=== PATIENT | female | born 1990 | race African-American/Black ===

== ENCOUNTER 2016-08-28 10:04 | Emergency (ER) | payer OTHER ==
[~2016-08-28] VITALS: Ht 167.6 cm; Wt 95.3 kg
[2016-08-28 10:18] VITALS: BP 144/90
--- NOTE | 2016-08-28 11:12 | PHYS DOC ---
Past Medical History Past Medical History: Anemia, Asthma Past Surgical History: Cholecystectomy Alcohol Use: Occasionally Drug Use: Marijuana Adult General Chief Complaint Chief Complaint: MULTIPLE COMPLAINTS HPI HPI Patient is a 26 year old female area and she states that she has not taken anything for pain and discomfort. She states that she had lifted something at work that was heavy. She continues to state that she is having bilateral hip pain and discomfort. She states that this is been gone on for years and there is something that has helped with the pain and discomfort. Patient denies any loss of bowel or bladder. She denies any numbness or tingling down into her feet. She does state that she has some burning with urination. She denies any fever, chills or any nausea vomiting. Review of Systems Review of Systems Constitutional: Denies fever or chills [] Eyes: Denies change in visual acuity, redness, or eye pain [] HENT: Denies nasal congestion or sore throat [] Respiratory: Denies cough or shortness of breath [] Cardiovascular: No additional information not addressed in HPI [] GI: Denies abdominal pain, nausea, vomiting, bloody stools or diarrhea [] : Denies dysuria or hematuria [] Musculoskeletal: lower back pain and bilateral hip pain Integument: Denies rash or skin lesions [] Neurologic: Denies headache, focal weakness or sensory changes [] Endocrine: Denies polyuria or polydipsia [] Current Medications Current Medications Current Medications Medications (Trade) Dose Ordered Sig/[facility] Start Time Stop Time Status Last Admin Dose Admin Cyclobenzaprine HCl (Flexeril) 10 mg 1X ONCE 08/28/16 12:15 08/28/16 12:16 08/28/16 11:44 10 MG Prednisone (Prednisone) 40 mg 1X ONCE 08/28/16 12:15 08/28/16 12:16 08/28/16 11:44 40 MG Allergies Allergies Allergies Coded Allergies Type Severity Reaction Last Updated Verified butorphanol Allergy Severe THROAT SWELLING, SOA 02/15/15 No doxycycline Allergy Intermediate Shortness of Air 05/20/13 Yes Physical Exam Physical Exam Constitutional: Well developed, well nourished, no acute distress, non-toxic appearance. [] HENT: Normocephalic, atraumatic, bilateral external ears normal, oropharynx moist, no oral exudates, nose normal. [] Eyes: PERRLA, EOMI, conjunctiva normal, no discharge. [] Neck: Normal range of motion, no tenderness, supple, no stridor. [] Cardiovascular:Heart rate regular rhythm, no murmur [] Lungs & Thorax: Bilateral breath sounds clear to auscultation [] Skin: Warm, dry, no erythema, no rash. [] Back: Lower lumbar spine tenderness, no step-offs, no deformities, no crepitus noted Extremities: No tenderness, no cyanosis, no clubbing, ROM intact, no edema. [] Neurologic: Alert and oriented X 3, normal motor function, normal sensory function, no focal deficits noted. [] Psychologic: Affect normal, judgement normal, mood normal. [] Current Patient Data Vital Signs Vital Signs Date Time Temp Pulse Resp B/P (MAP) Pulse Ox O2 Delivery O2 Flow Rate FiO2 08/28/16 10:18 98.2 76 20 98 Room Air 98.2 Lab Values Laboratory Tests Test 08/28/16 10:39 08/28/16 11:30 POC Urine HCG, Qualitative Hcg negative (Negative) Urine Collection Type Unknown Urine Color Yellow Urine Clarity Hazy Urine pH 6.0 Urine Specific [place] 1.020 Urine Protein Negative mg/dL (NEG-TRACE) Urine Glucose (UA) Negative mg/dL (NEG) Urine Ketones (Stick) Negative mg/dL (NEG) Urine Blood Negative (NEG) Urine Nitrite Negative (NEG) Urine Bilirubin Negative (NEG) Urine Urobilinogen Dipstick 0.2 mg/dL (0.2 mg/dL) Urine Leukocyte Esterase Small (NEG) Urine RBC Occ /HPF (0-2) Urine WBC 5-10 /HPF (0-4) Urine Squamous Epithelial Cells Many /LPF Urine Bacteria Many /HPF (0-FEW) Urine Mucus Marked /LPF EKG EKG [] Radiology/Procedures Radiology/Procedures [] Course & Med Decision Making Course & Med Decision Making Pertinent Labs and Imaging studies reviewed. (See chart for details) Patient was able to ambulate to the bathroom with a good steady gait. Patient chart was positive for urinary tract infection she'll be provided Macrobid. Also recommended patient to drink plenty fluids such as water and cranberry juice. Avoid cranberry juice cocktail, carbonated beverages, citrus fruits and alcohol sees her considered irritants to the bladder. She'll be provided with a prescription for Flexeril to help with muscle spasms. Patient was instructed Flexeril will cause drowsiness do not take if he did be alert and oriented. Recommended ibuprofen for pain and discomfort as well as Tylenol. Patient will also be provided his prescription for prednisone to help with her asthma. Patient states she has her albuterol inhaler at home in which she can continue to use. Patient was recommended follow-up with her primary care physician in the next 3-5 days for asthma symptoms. Recommended following up with her primary care physician in the next 7-10 days for back issues. Signs symptoms to return back to emergency department was provided. Patient will be discharged home in stable condition. [] Dragon Disclaimer Dragon Disclaimer This electronic medical record was generated, in whole or in part, using a voice recognition dictation system. Departure Departure Impression: Primary Impression: Lower back pain Additional Impressions: Asthma exacerbation UTI (urinary tract infection) Disposition: HOME, SELF-CARE Condition: STABLE Referrals: NO PCP (PCP) Patient Instructions: Asthma, Adult, [id number], Back Pain, Adult, Easy-to- Read, Urinary Tract Infection, [id number] Additional Instructions: Activity as tolerated Medication as prescribed Flexeril will cause drowsiness do not take if you need to be alert and oriented Ice packs to the back area on 20 minutes and off 20 minutes several times a day Drink plenty of fluids such as water and cranberry juice. Avoid cranberry juice cocktail, carbonate beverages, citrus fruits and alcohol disease are considered irritants to the bladder. Followup with your primary care provider in 3-5 days for your asthma Followup with your primary care provider in 7-10 days for your back pain Return to emergency department as needed for signs and symptoms that become worse. Scripts Nitrofurantoin Monohyd/M-Cryst (MACROBID 100 MG CAPSULE) 100 Mg Capsule 1 CAP PO BID, #14 CAP Prov: LINK SANCHEZ APRN 08/28/16 Prednisone (PREDNISONE) 20 Mg Tablet 40 MG PO DAILY for 7 Days, #14 TAB Prov: LINK SANCHEZ APRN 08/28/16 Cyclobenzaprine Hcl (CYCLOBENZAPRINE HCL) 10 Mg Tablet 10 MG PO TID Y for MUSCLE SPASMS, #30 TAB Prov: LINK SANCHEZ APRN 08/28/16 Problem Qualifiers LINK SANCHEZ INFECTION PREVENTION SPECIALIST Aug 28, 2016 11:12
[2016-08-28 11:42] LABS: BILIRUBIN,URINE NEGATIVE (NEG); GLUCOSE,URINE NEGATIVE (NEG); NITRITE,URINE NEGATIVE (NEG); PROTEIN,URINE NEGATIVE (NEG-TRACE); UROBILINOGEN,URINE 0.2 mg/dL (0.2 mg/dL)
[2016-08-28] MEDS ORDERED: CYCL10TA2 PO (11:44)
[2016-08-28] MEDS ORDERED: PRED20TA PO (11:45)
[2016-08-28 11:58] LABS: BACTERIA,URINE MANY /HPF (0-FEW); RBC,URINE OCC /HPF (0-2); SQUAMOUS EPITHELIAL CELL,UR MANY /LPF
[2016-08-28] MEDS ORDERED: NITR100C62 PO (12:03)
[2016-08-28] MEDS ORDERED: CYCLOBENZAPRINE 10 MG TABLET. PO ONE (12:15)
[2016-08-28] MEDS ORDERED: predniSONE 20 MG TABLET PO ONE (12:15)
== END 2016-08-28 12:09 | disposition home or self-care (01) ==
LOC: ER 10:04
DX: N39.0 Urinary tract infection, site not specified (principal); M54.5 Low back pain; J45.901 Unspecified asthma with (acute) exacerbation; M25.552 Pain in left hip; M25.551 Pain in right hip; F12.10 Cannabis abuse, uncomplicated; Z90.49 Acquired absence of other specified parts of digestive tract; Z88.1 Allergy status to other antibiotic agents; Z88.8 Allergy status to other drugs, medicaments and biological substances
CPT/HCPCS: 81001; 81025; 87086; 99284; J7512